=== PATIENT | male | born 1995 | race Two or more races ===

== ENCOUNTER → 2020-04-03 | Day surgery (SDC) | payer BC ==
[~2020-04-03] VITALS: Ht 190.5 cm; Wt 72.6 kg
[2020-04-03] VITALS (10 sets, daily range): BP systolic 127–148; BP diastolic 50–80
[~2020-04-03] MED LIST: AZELASTINE137 MCG/0. NS; Acetaminophen (Non formulary) 100 ML IV ONE; Atropine Sulfate 0.4mg/ml inj IVP PRN; Bacitracin Oint 15gm Tube TOPIC ONE; Betadine 10% Oint 30gm TOPIC ONE; Betadine 4oz Bottle TOPIC ONE; Cocaine HCl 4% 4ml vial TOPIC ONE; DiphenhydrAMINE 50mg/ml Inj IVP PRN; Glycopyrrolate 0.2mg/ml 1ml Vial ONE; HYDROcodone/Acetamin 5/325 tab ORAL PRN; HYDROcodone/Acetamin 7.5/325 tab ORAL PRN; Hydromorphone 0.5mg/0.5ml inj IVP PRN; Kenalog-40 1ml Vial ONE; Ketorolac 30mg Inj IV PRN; LORazepam Inj 2mg/ml 1ml IV PRN; LR 1000ml 1,000 ML IVLG SCH; LR 1000ml ONE; Labetalol 5mg/ml 20ml vial IV PRN; Lidocaine 1% 10mg/ml/EPI 0.01mg/ml 30ml INJ ONE; Lidocaine 1% 10mg/ml/Epi 0.005mg/ml 30ml vial INJ ONE; Lidocaine 1% MPF 10mg/ml 5ml ONE; Lidocaine 1% Plain 30 ml INJ ONE; Meperidine 25mg/0.5ml Inj (FOR RIGORS ONLY) IV PRN; Metoclopramide 10mg/2ml Inj IVP PRN; Midazolam 2mg/2ml Inj IVP PRN; NS Irrig 1000ml ONE; Neostigmine 1mg/ml 10ml Inj ONE; Oxymetazoline 0.05% Na Spray 30ml NASAL ONE; Rocuronium Bromide 50mg/5ml Inj IV ONE; Sodium Chloride 10ml vial INJ ONE; Sterile Water Irrig 1000ml IRRIG ONE; fentaNYL 100 mcg/2 mL IV ONE; fentaNYL 100 mcg/2 mL IV PRN; oxyCODONE HCL/Acetaminophen 5/325mg ORAL PRN; propofoL 1,000mg/100ml IV ONE
--- NOTE | 2020-04-03 11:19 | Anethesia Preoperative Eval ---
Anesthesia Pre-op PMH/ROS General Date of Evaluation: Apr 03, 2020 Time of Evaluation: 11:36 Anesthesiologist: Kaylee ASA Score: ASA 1 Mallampati Score Class I : Soft palate, uvula, fauces, pillars visible Class II: Soft palate, uvula, fauces visible Class III: Soft palate, base of uvula visible Class IV: Only hard plate visible Mallampati Classification: Class II Surgeon: Francine Diagnosis: R Nasal Tumor Surgical Procedure: Resection R Nasal Tumor, Septoplasty Anesthesia History: none Family History: no anesthesia problems Allergies: Coded Allergies: AMOXICILLIN (Verified Allergy, Intermediate, rash, 04/02/20) CLAVULANIC ACID (Verified Allergy, Intermediate, rash, 04/02/20) Medications: see eMAR Patient NPO?: Yes Past Medical History PSxH Narrative: Nose Sx X2 Anesthesia Pre-op Phys. Exam Physician Exam Last Vital Signs Date Time Temp Pulse Resp B/P (MAP) Pulse Ox O2 Delivery O2 Flow Rate FiO2 04/03/20 11:05 98.3 94 20 133/80 100 Room Air Constitutional: NAD Neurologic: CN 2-12 intact Cardiovascular: RRR Respiratory: CTA Gastrointestinal: S/NT/ND Airway Exam Mallampati Score: Class II MO: full ROM: full Teeth: missing, intact Anesthesia Pre-op A/P Risk Assessment & Plan Assessment: ASA 1 Plan: GA, SED, GlideScope Status Change Before Surgery: No Pre-Antibiotics Dru Gram Ancef IV Given Within 1 Hr of Incision: Yes Time Given: 12:21 Raudel Page MD Apr 03, 2020 11:19
--- NOTE | 2020-04-03 12:26 | Pre-Procedure Note/Attestation ---
Pre-Procedure Note/Attestation Complete Prior to Procedure Planned Procedure: bilateral Procedure Narrative: nasal obstruction unresponsive to medfication Indications for Procedure Pre-Operative Diagnosis: septal deviation, collapsed right internal valve, right intramasal tumor, bilateral hypertrophied inferior turbinates Attestation I attest that I discussed the nature of the procedure; its benefits; risks and complications; and alternatives (and the risks and benefits of such alternatives ), prior to the procedure, with the patient (or the patient's legal arborist representative). I attest that, if there was a reasonable possibility of needing a blood transfusion, the patient (or the patient's legal arborist representative) was given the [facility] standardized written summary, pursuant to the [place]hawn Blood Safety Act ([place] Health and Safety Code # 1645, as amended). I attest that I re-evaluated the patient just prior to the surgery and that there has been no change in the patient's H&P, except as documented below: Dimas Bazzi MD Apr 03, 2020 12:26
--- NOTE | 2020-04-03 13:52 | 48 Hour Post Anesthesia Eval ---
Post Anesthesia Evaluation Procedure: Resection R Nasal Tumor, Septoplasty Date of Evaluation: Apr 03, 2020 Time of Evaluation: 16:52 Blood Pressure Systolic: 138 0: 72 Pulse Rate: 74 Respiratory Rate: 18 Temperature (Fahrenheit): 98.4 O2 Sat by Pulse Oximetry: 100 Airway: patent Nausea: No Vomiting: No Pain Intensity: 2 Hydration Status: adequate Cardiopulmonary Status: Stable Mental Status/LOC: patient returned to baseline Follow-up Care/Observations: 0 Post-Anesthesia Complications: 0 Follow-up care needed: ready to discharge Raudel Page MD Apr 03, 2020 13:52
--- NOTE | 2020-04-03 13:52 | Immediate Post-Op Evaluation ---
Immediate Post-Op Evalulation Immediate Post-Op Evalulation Procedure: Resection R Nasal Tumor, Septoplasty Date of Evaluation: Apr 03, 2020 Time of Evaluation: 14:40 IV Fluids: 500 LR Blood Products: 0 Estimated Blood Loss: 25 Urinary Output: 0 Blood Pressure Systolic: 140 Blood Pressure Diastolic: 75 Pulse Rate: 72 Respiratory Rate: 16 O2 Sat by Pulse Oximetry: 100 Temperature (Fahrenheit): 98.3 Pain Score (1-10): 2 Nausea: No Vomiting: No Complications 0 Patient Status: awake, reacts, patent, extubated, none Hydration Status: adequate Dru Gram Ancef IV Given Within 1 Hr of Incision: Yes Time Given: 12:21 Raudel Page MD Apr 03, 2020 13:52
--- NOTE | 2020-04-03 14:18 | Brief Operative Note ---
Immediate Post Operative Note Operative Note Pre-op Diagnosis: septal deviation, collapsed right internal valve, right intramasal tumor, bilateral hypertrophied inferior turbinates Procedure: septoplasty, resection of right intranasal synechiae, reconstruction of right internal valve collapse, bilateral intramural coagulation with inferior turbinectomies Post-op Diagnosis: same as pre-op Surgeon: Dimas Talbert Anesthesiologist: [email or web address] Anesthesia: MAC Specimen: none Complications: none Condition: stable Fluids: ringers lactate Estimated Blood Loss: minimal Drains: none Packing: [email or web address] Implant(s) used?: No Dimas Bazzi MD Apr 03, 2020 14:18
--- NOTE | 2020-04-04 22:00 | Operative Note - Dictated ---
DATE OF OPERATION: 04/03/2020 SURGEON: Dimas Bazzi M.D. ANESTHESIA: MAC. PREOPERATIVE DIAGNOSES: 1. Septal deviation. 2. Bilateral hypertrophied inferior turbinates. 3. Right intranasal tumor. 4. Collapsed right internal valve. POSTOPERATIVE DIAGNOSES: 1. Septal deviation. 2. Bilateral hypertrophied inferior turbinates. 3. Huge right intranasal synechiae. 4. Collapsed right internal valve. PROCEDURE: 1. Lysis of right intranasal synechiae. 2. Septoplasty. 3. Bilateral inferior turbinectomies with intramural coagulation. 4. Reconstruction of collapsed right internal valve with rotation advancement flap. The patient is a 24-year-old male who complains of total right nasal airway obstruction, unrelieved by any medication. His examination reveals that the external nose deviates to the left inferiorly in a C-shaped configuration with collapse of the superior alar groove. Intranasal examination revealed a huge mass between the septum and the right inferior turbinate and extending up to the internal valve area as well as superiorly almost to the posterior choanae. The septum was found to be convex to the right and there are bilateral hypertrophied inferior turbinates. The internal valve was also collapsed with small synechiae extending from the septum to the lateral aspect of the upper lateral cartilage. SURGERY: The patient was brought to the operating room while premedicated and having received preoperative antibiotics. He was then placed in supine position on the operating room table. After the patient underwent satisfactory intubation, followed by IV sedation, his nasal cavity was sprayed with 0.25% Waqar-Synephrine. A sterile Q-tip saturated with Betadine solution was used to sterilize the intranasal cavity and remove thick white to yellow mucus from both sides of nasal cavity. Approximately 15 mL of 1% Xylocaine with 1:100,000 epinephrine was used to inject the nasal and septal frameworks. Less than 200 mg of cocaine was used on intranasal packing. It is of note that that right nasal cavity could only be packed approximately 1 inch because of the huge right nasal obstruction. The patient was then prepped and draped in the usual sterile fashion. After a suitable period of time had elapsed, the packing was removed from the nasal cavity. A #15 blade was used to make an incision starting toward the floor of the nose extending anteriorly through the large mass of scar tissue. The mass was so large and thick that the boundaries of the septum and the inferior turbinates were obliterated. Dissection eventually proceeded superiorly until the synechiae were lysed and a small space was able to be seen between the septum and inferior turbinates. The #15 blade was also used to lyse the connection between the septum and the upper lateral cartilage. The #15 blade was then used to make a right inferior septal incision encountering hard, thick scar tissue. Using sharp dissection, the hard thick scar tissue was able to be dissected from the septal cartilage. The major portion of the septal deviation was anterior with the septum deviated to the left and then quickly deviated severely to the right consistent with the external nasal deformity. The anterior septal cartilage could not be removed because of the possibly of collapsing the dorsum, and so the area was crosshatched and mobilized in more physiologic position for breathing as was the remaining portion of the right deviated septal cartilage. Re-examination revealed the intranasal cavity to be in a more midline physiologic position for breathing. Bipolar intramural coagulation of both inferior turbinates was then performed. An incision was made on the undersurface of both inferior turbinates and mucosa stripped the underlying bone. The inferior turbinates were then outfractured and a small piece removed from the pocket. Attention was then turned to collapse of the right internal valve. A #15 blade incision was made between the upper and lower lateral cartilage and then carried over to the dorsum of the nose. The #15 blade was used to make a cut both inferior and superior to the area of collapse. The tissue was then released from the septum as well as any connecting connection over the upper lateral cartilage to the nasal dorsum. A transverse incision was then used to connect both the inferior and superior vertical incision. The dissection was carried down to the septum and once the area was free of all attachments, the entire complex was rotated laterally and anteriorly and sutured in place with 4-0 plain. Re-examination now revealed that the right internal valve was patent and the patient had a good nasal passageway. All blood was suctioned from the nose and nasopharynx area. A 4-0 plain was used to close the septal incision as well as to splint the septum and Telfa coated with Betadine ointment was secured intranasally with a suture of 3-0 silk and the procedure was terminated. The patient tolerated the procedure well and left the operating room in satisfactory condition. Estimated blood loss was 30 mL. Sponge and needle counts were correct. Dimas Bazzi M.D. DR: CAMELIA JOB#: [id number] CC: POIL
== END | disposition home or self-care (01) ==
LOC: SUR 08:48
DX: J34.2 Deviated nasal septum (principal); J34.3 Hypertrophy of nasal turbinates; J34.9 Unspecified disorder of nose and nasal sinuses; M95.0 Acquired deformity of nose
CPT/HCPCS: 14060; 30140; 30465; 30520; 30560; 94003; C9046; J0131; J0690; J1100; J2001; J2250; J2405; J2704; J2710; J2765; J3010; J3301; J7120; U0002; 94150; A4246